=== PATIENT | female | born 1970 | race Caucasian/White ===

== ENCOUNTER → 2020-01-21 | Outpatient (CLI) | payer OTHER, SELFPAY ==
[2020-01-21 14:32] VITALS: BMI 34.8
--- NOTE | 2020-01-21 15:15 | EMB_PTH ---
PATIENT: BALBINA SCHULER [facility] U#:[id number] AGE/SX: 49/F ROOM: RE01/21/[address]: GEOVANY Strickland : 1970 BED: DIS: 01/21/2020 SPEC #: [id number] RECD: 01/21/20 15:36 STATUS: JERSON SERGIO #: [id number] BERTIN: 01/21/20 15:[address]: Kathie Nugent NP DEPT: SURGICAL PATHOLOGY RECD BY: Jerman Mueller Tissues: Endometrium, NOS Procedures: Surgery Specimen Level IV HEADER OPERATION: Endometrial biopsy PRE-OP DIAGNOSIS: Abnormal uterine bleeding TISSUE SUBMITTED: Endometrial lining MICROSCOPIC DIAGNOSIS Endometrial biopsy: Disordered proliferative endometrium to simple endometrial hyperplasia without atypia. See comment. KARRI:lj 01/23/20 COMMENT Clinical correlation and appropriate follow up are necessary. Case has been reviewed in consultation with Dr. Christie who concurs with the above diagnosis. IDC:AM MICROSCOPIC DESCRIPTION Slides are reviewed. GROSS DESCRIPTION Received is one container labeled with the patient's name and not further designated. The specimen consists of an elongated fragment of pink-ferrer soft tissue measuring in aggregate 2.5 x 2 x 0.2 cm. The specimen is totally submitted in one cassette. / AM:lj 01/22/20 TC:5 CPT: 29984
[2020-01-24 13:04] LABS: HPV APTIMA, High Risk Negative (Negative)
== END | disposition home or self-care (01) ==
PROVIDERS: Visit Provider Nurse Practitioner Women's Health
DX: N85.8 Other specified noninflammatory disorders of uterus (principal)
CPT/HCPCS: 87624; 88175; 88305; G0145

== ENCOUNTER → 2020-01-29 14:29 | Outpatient (CLI) | payer SELFPAY, OTHER ==
[2020-01-21 14:32] VITALS: BMI 34.8
--- NOTE | 2020-01-29 14:30 | US_ITS ---
STUDY: ULTRASOUND TRANSVAGINAL CLINICAL: Female, 49 years old. Abnormal bleeding TECHNIQUE: Transabdominal and Transvaginal COMPARISON: None. FINDINGS: Normal uterine size measuring 11.1 cm in maximal craniocaudal dimension. There are no myometrial masses. Normal endometrial thickness measuring 11 mm. There are no endometrial masses, and there is no fluid in the endometrial cavity. Normal uterine cervix. Normal right ovary, measuring 3.5 x 1.8 x 1.6 cm. There are multiple follicles without a dominant cyst. Normal left ovary, measuring 6.5 x 4.2 x 3.9 cm. There are multiple follicles with 2 separate simple cysts, larger measures 4.4 cm, smaller 3.87 m. There is no free fluid in the pelvis. Bladder is sonographically normal US/Transvaginal Non- IMPRESSION: Sonographically normal uterus and right ovary Simple left ovarian cysts, 4-6 week follow-up ultrasound recommended to ensure resolution Electronically Signed: Dhrvu Salas MD at 16:43 EDT , Service support ,
--- NOTE | 2020-01-29 14:30 | US_ITS ---
STUDY: ULTRASOUND TRANSVAGINAL CLINICAL: Female, 49 years old. Abnormal bleeding TECHNIQUE: Transabdominal and Transvaginal COMPARISON: None. FINDINGS: Normal uterine size measuring 11.1 cm in maximal craniocaudal dimension. There are no myometrial masses. Normal endometrial thickness measuring 11 mm. There are no endometrial masses, and there is no fluid in the endometrial cavity. Normal uterine cervix. Normal right ovary, measuring 3.5 x 1.8 x 1.6 cm. There are multiple follicles without a dominant cyst. Normal left ovary, measuring 6.5 x 4.2 x 3.9 cm. There are multiple follicles with 2 separate simple cysts, larger measures 4.4 cm, smaller 3.87 m. There is no free fluid in the pelvis. Bladder is sonographically normal US/Pelvic (Non ) IMPRESSION: Sonographically normal uterus and right ovary Simple left ovarian cysts, 4-6 week follow-up ultrasound recommended to ensure resolution Electronically Signed: Dhruv Salas MD at 16:43 EDT , Service support ,
--- NOTE | 2020-01-29 14:30 | BI_ITS ---
MAMMOGRAPHY - BILATERAL SCREENING REASON FOR EXAM: Female, 49 years old. Routine annual screening examination. PERTINENT HISTORY: Non-contributory. TECHNIQUE: Digital bilateral breast clinton (3D mammographic acquisition) in the CC and MLO projections. 2-D mediolateral oblique (MLO) and craniocaudad (CC) views of both breasts were obtained. CAD: Full Field Digital Mammography with Computer Added Detection was performed. COMPARISON: None. Baseline examination. FINDINGS: Breast Composition: There are scattered areas of fibroglandular density. There are no dominant masses or suspicious calcifications. No other significant abnormalities are identified. BI/SCREEN MAMM (CAD) W/[place] BILAT IMPRESSION: Negative screening mammogram. Yearly followup mammogram recommended. (A) ASSESSMENT CATEGORY: BIRADS Category 1: Negative. A letter regarding these results will be sent to the patient by the facility within 30 days. Approximately 10% of breast cancers are not detected by mammography. A normal mammogram should not delay biopsy of a clinically suspicious abnormality. [id number] Electronically Signed: Willie Anderson, at 15:20 EDT , Service support ,
== END ==
PROVIDERS: Referring Provider Nurse Practitioner Women's Health; Visit Provider Nurse Practitioner Women's Health
DX: Z12.31 Encounter for screening mammogram for malignant neoplasm of breast (principal); N92.1 Excessive and frequent menstruation with irregular cycle
CPT/HCPCS: 76830; 76856; 77063; 77067

== ENCOUNTER → 2020-02-03 11:09 | Outpatient (CLI) | payer OTHER, SELFPAY ==
[2020-02-03 10:17] VITALS: BMI 34.0
[2020-02-03 11:34] LABS: Absolute Lymphocyte Count 1.39 X10^3/uL (0.83-4.51); Absolute Neutrophil Count 4.9 X10^3/uL (2.0-7.7); Basophil# 0.03 X10^3/uL; Basophil% 0.4 % (0-1); Eosinophil# 0.06 X10^3/uL; Eosinophils% 0.9 % (0-5); Hematocrit 38.1 % (37-47); Hemoglobin 12.3 g/dL (12.0-15.0); Lymphocyte # 1.39 X10^3/ul (4.0); Lymphocyte % 20.1 % (19-41); Mean Corp Hgb Conc 32.3 g/dL (32-36); Mean Corpuscular Hgb 29.6 pg (27.0-32.0); Mean Corpuscular Volume 91.6 fL (81-99); Mean Platelet Vol. 11.3 fl (6.2-12.0); Monocyte# 0.51 X10^3/uL; Monocyte% 7.4 % (0-10); NRBC Flagged by Analyzer 0 % (0-5); Neutrophil # 4.89 X10^3/uL (2.7-7.7); Neutrophil % 70.9 % (47-70); Platelet Count 281 K/mm3 (150-450); RBC Distribution Width CV 12.3 % (11.6-14.6); RBC Distribution Width SD 40.9 fl (35.1-43.9); Red Blood Count 4.16 M/mm3 (4.2-5.4); White Blood Count 6.9 K/mm3 (4.4-11.0)
[2020-02-03 11:55] LABS: Thyroid Stim Hormone (TSH) 0.94 uIU/mL (0.358-3.74)
== END ==
PROVIDERS: Referring Provider Obstetrics & Gynecology; Visit Provider Obstetrics & Gynecology
DX: N92.1 Excessive and frequent menstruation with irregular cycle (principal)
CPT/HCPCS: 36415; 84443; 85025

== ENCOUNTER 2020-02-18 09:52 | Day surgery (SDC) | payer SELFPAY ==
[2020-02-03 10:17] VITALS: BMI 34.0
--- NOTE | 2020-02-17 17:11 | HP.PCM_ITS ---
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 Zita Lanza MD) Abnormal uterine bleeding (Acute) Surgical History (Updated 02/03/20 @ 11:[address] Zita Lanza MD) Hernia (Acute) Previous section (Acute) Social History (Updated 02/03/20 @ 11:[address] 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 she has an enlarged uterus and hyperplasia. she denies any pelvic floor disorders or urinary issues. she had already been seen by the INTERIOR PANELER and is wanting to proceed with a hysterectomy. Female Reproductive History Cycle Length: 21-35 Bleeding Duration: 10 Questions: Metorrhagia: Yes, Sexually active: Yes, Dyspareunia: No, PCB: No Pregancy History 6 Elective abortions Hx Para 6 Spontaneous abortions Hx # Term Pregnancies 6 Ectopic pregnancies Hx # Pregnancies Multiple births # of living children 6 Past Pregnancies Del. Date Name GA/Weeks Outcome Route Bth Weight Gen Labor Lgth Anesthesia Del Locatn Provider FOB Unknown Sophie Ramos 1992 Unknown Mirza 1995 Unknown Yaneth 1997 Unknown Valdo 2000 Unknown Denys 2004 Unknown Luzmaria 2006 ROS Const Constitutional: Denies fatigue, fever(s), headache(s), increased appetite, poor appetite, weight gain or weight loss Cardio Card: Denies chest pain Resp Resp: Denies cough or dyspnea GI GI: Reports as per HPI; denies abdominal pain, constipation, nausea or vomiting : Reports as per HPI; denies difficulty urinating, painful urination, nipple discharge, urinary frequency, urinary incontinence, urinary hesitancy, urinary urgency, vaginal discharge, vaginal dryness, vaginal odor or vaginal itching Skin Skin/Breast: Denies change in hair, breast lump, breast pain, breast skin changes or nipple discharge Exam Const General: cooperative, healthy appearing, comfortable, no acute distress, well developed Orientation: alert HENMT Head: normal to inspection, normocephalic Neck Neck: normal visual inspection, trachea midline Thyroid: thyroid normal Resp Effort & Inspection: normal respiratory effort GI Inspection: normal to inspection, non-distended Palpation: soft, no hepatosplenomegaly General: bladder normal to palpation External Female Exam: normal external appearance, normal appearance of the urethra Urethra: normal appearance of the urethra, normal palpation, no discharge Speculum Exam - Vagina: normal appearance of the vagina, normal vaginal discharge Speculum Exam - Cervix: normal appearance of the cervix, nontender Bimanual Exam- Vagina & Uterus: normal bimanual exam, uterine size normal, bladder normal to palpation, uterine shape normal, No cervical tenderness, uterine mobility normal, uterine consistency normal, normal cervical palpation, uterus non-tender Bimanual Exam- Adnexa, other: normal adnexae, adnexae mobile, no adnexal masses, pelvic support normal Pelvic Support: normal Skin General: no rashes or lesions noted Assessment & Plan Problems 1. Hernia K46.9 umbilical with mesh. needs LUQ entry if Lavh 2. Previous section Z98.891 3. Abnormal uterine bleeding N93.9 11 CM uterus. simple hyperplasia without atypia. cbc tsh ordered. plan TVH BS possible LAVH LSO. Plan After discussing the patient's diagnosis and treatment plan options, patient wishes to proceed with surgical management. I have discussed with the patient the risks, benefits, and alternatives of the procedure which include but are not limited to risks of anesthesia, bleeding, infection, possible damage to bowel, bladder, or surrounding vasculature which could lead to additional surgery to evaluate any complications. Patient agrees to procedure and wishes to proceed. ACOG/uptodate references given for additional information regarding procedure. Orders Orders: Thyroid Stim Hormone (TSH) Today N92.1 CBC W/Diff, Automated Today N92.1 Coding Level of Care Code Off vis,est,level 4 Diagnoses Hernia K46.9 Previous section Z98.891 Abnormal uterine bleeding N93.9 UPDATE- I have seen the patient and performed any clinically relevant updates to the history and physical exam. Zita Lanza MD
[2020-02-18] VITALS (13 sets, daily range): BP systolic 139–168; BP diastolic 79–95; PULSE 44–82; RESP 14–18; TEMP 36–37.3; O2SAT 87–100; BMI 35.2
--- NOTE | 2020-02-18 | HYST_PTH ---
PATIENT: BALBINA SCHULER [place] [facility] [place] U#:[id number] AGE/SX: 49/F ROOM: RE02/18/[address]: Dr. Zita Lanza MD : 1970 BED: DIS: 02/19/2020 SPEC #: [id number] RECD: 02/18/20 15:14 STATUS: JERSON SERGIO #: [id number] BERTIN: 02/18/20 00:[address]: Zita Lanza DEPT: SURGICAL PATHOLOGY RECD BY: Justyn Vides ENTERED: 02/19/20 09:43 SP TYPE: HYSTERECT OTHR DR: No Primary Care Phys Tissues: Uterus, NOS Procedures: Surgery Specimen Level V HEADER OPERATION: ERAS, vaginal hysterectomy, bilateral salpingectomy, left salpingo-oophorectomy PRE-OP DIAGNOSIS: Enlarged uterus, left ovarian cyst, menorrhagia TISSUE SUBMITTED: Uterus, fallopian tubes, left ovary MICROSCOPIC DIAGNOSIS Uterus, fallopian tubes and left ovary, vaginal hysterectomy, bilateral salpingectomy and left oophorectomy: Cervix - chronic inflammation. Endometrium - disordered proliferative endometrium. Myometrium - intramural leiomyomas (0.5 to 2 cm in greatest dimension). Bilateral fallopian tubes - no pathologic diagnosis. Left ovary - hemorrhagic follicular and corpus luteal cysts. SJ:lj 02/20/20 COMMENT Please make reference to previous specimen ([id number]) endometrial biopsy with diagnosis of disordered proliferative endometrium to simple endometrial hyperplasia without atypia. MICROSCOPIC DESCRIPTION Slides are reviewed. GROSS DESCRIPTION Received in fixative is one container labeled with the patient's name and designated uterus. The specimen consists of a uterus with attached cervix, two detached fallopian tubes and one detached ovary. The uterus with cervix measures 12 x 7.5 x 6.5 cm and weighs 206 gm. The ectocervix is grossly unremarkable. The cervical os is oval in contour. The endocervical canal measures 4.5 cm in length and is grossly unremarkable. The triangular endometrial cavity measures 4.5 x 4.5 cm. The velvety, ferrer endometrium measures up to 0.5 cm in thickness. The myometrium measures 2.5 cm in average thickness and contains multiple spherical, rubbery nodule ranging in size from 0.5 to 2 cm in greatest dimension. The cut surface of the nodules are grossly consistent with leiomyoma. The two fallopian tubes are similar in appearance and both contain grossly unremarkable fimbriated ends and have average lengths of 4 cm and average diameters of 0.7 cm. The smooth, glistening, light ferrer cystic ovary measures 5.2 x 2.5 x 1.7 cm and [id number] gm. Serial sections reveal two hemorrhagic cysts ranging in size from 3 to 2.8 cm in greatest dimension. [place]el [place] Brushing Machine Operator sections are submitted in 12 cassettes as follows: 1 - anterior cervix, 2 - posterior cervix, 3 & 4 - anterior uterine wall, 5 & 6 - posterior uterine wall, 7 - myometrial nodules, 8 - one fallopian tube, 9 - the other fallopian tube, 10-12 - ovary. / AM:lj 02/19/20 TC:1 CPT: 96713
[2020-02-18] MEDS: Lactated Ringers 1,000 ML 40 ML IV (07:00)
[2020-02-18 10:47] LABS: Magnesium 2.1 mg/dL (1.6-2.6)
[2020-02-18 10:49] LABS: Internal QC Validated? YES +Cl - CLEAR BKGD; Pregnancy, Urine Negative Negative
[2020-02-18 10:49] LABS: Hematocrit 39.4 % (37-47); Hemoglobin 12.8 g/dL (12.0-15.0); Mean Corp Hgb Conc 32.5 g/dL (32-36); Mean Corpuscular Hgb 29.9 pg (27.0-32.0); Mean Corpuscular Volume 92.1 fL (81-99); Mean Platelet Vol. 11.4 fl (6.2-12.0); Platelet Count 287 K/mm3 (150-450); RBC Distribution Width CV 12.3 % (11.6-14.6); Red Blood Count 4.28 M/mm3 (4.2-5.4); White Blood Count 9.4 K/mm3 (4.4-11.0)
[2020-02-18] MEDS: Phenazopyridine 95 MG Tablet 190 MG PO (11:09)
[2020-02-18] MEDS: Gabapentin 600 MG Tablet PO (11:10)
[2020-02-18] MEDS: Acetaminophen 500 MG Tablet 1000 MG PO ×3 (11:10→23:51)
[2020-02-18] MEDS: Celecoxib 200 MG Capsule 400 MG PO (11:10)
[2020-02-18] MEDS: Enoxaparin 40 MG/0.4 ML Syringe SC (11:11)
[2020-02-18] MEDS: Scopolamine 1mg/72hr Patch 1 PATCH TRANSDERM. (11:11)
[2020-02-18] MEDS: dexAMETHasone 10 MG/ML Vial 8 MG IV (11:12)
[2020-02-18 11:45] LABS: Bedside Glucose 70 mg/dL (70-110)
--- NOTE | 2020-02-18 12:06 | PCM.OPRPT ---
Problem List (1) Enlarged uterus Status: Acute Comment: US- 11 cm uterus (2) Left ovarian cyst Status: Acute Comment: 3 and 4 cm simple (3) Menorrhagia with irregular cycle Status: Acute Comment: EMB nl Report of Operation Date of Procedure: 02/18/20 Pre-Operative Diagnosis: AUB Post-Operative Diagnosis: same plus right ovarian cysts Surgery/Procedure Performed:: tvh bs right oophorectomy Description of Surgical Findings:: right cystic ovary enlarged fibroid uterus head librarian: Jojo Valderrama Type of Anesthesia:: General Special Medications: none Specimen's removed: uterus tubes Drains: valdez Estimated Blood Loss (mL): 200 Fluids Replaced: crystalloid Description of Procedure: Patient was taken to the operating room and was placed under general anesthesia was prepped and draped in normal sterile fashion in the dorsal lithotomy position. Preoperative antibiotics and SCDs and Valdez catheter was placed inside the bladder. Weighted speculum was placed in the vagina and the anterior and posterior lip of the cervix was grasped with 2 Daniel clamps and circumferentially injected with dilute vasopressin. A circumferential incision was made with a scalpel and the posterior cul-de-sac was entered into sharply and a longneck speculum was placed. The anterior cul-de-sac was also dissected down and entered into sharply and the uterosacral ligaments were clamped cut and suture ligated bilaterally followed by the cardinal ligaments which were Clamped cut and suture ligated bilaterally with 0 Monocryl. The uterus serially descended and progressive bites were taken bilaterally up to the level of the utero-ovarian ligament bilaterally which was clamped transected and double ligated with 0 Monocryl suture and 0 Vicryl free tie. Bilateral fallopian tubes and ovaries were well visualized and noted be within normal limits and the bilateral fallopian tubes were transected across the base with a Bibi clamp and removed and sutured with 0 Vicryl suture. Along with excess. The left ovary was polycystic but did not have the appearance that was seen on ultrasound. Due to some bleeding in the right ovary with dissection of the cyst the right ovary was removed without complication by transecting at the base and suturing with 0 Vicryl. Some peritoneal oozing was noted on the right pelvic sidewall which was suture-ligated with 2-0 Vicryl. Excellent hemostasis was noted. Posterior peritoneum was reapproximated with 2-0 Vicryl and a modified Fagan stitch was placed through the posterior vaginal cuff and bilateral uterosacral ligaments across the posterior cul-de-sac skimming along to provide apical support to the vagina. The vagina was closed with [id number] 0 Vicryl pop offs including the posterior and anterior peritoneum in the reapproximation. Excellent hemostasis was noted. All instruments removed from the vagina clear urine was noted at the end of the procedure and patient was awoken and taken recovery in stable condition. Grafts/Implants Used: none - Complications none - Admit VTE Documentation VTE Present on Admission: No VTE Mechan Device Prophylaxis: SCD's VTE Pharm Prophylaxis ordered?: Yes Multi Select Codes - Urinary/Genital Urinary/Genital CPT Codes: 46049 TVH+BS/O >250gr uterus
--- NOTE | 2020-02-18 12:08 | PCM.DC.VHY ---
Discharge Diet: No Restrictions Discharge Activity: Return to Normal Activity, May Not Drive, May Shower May resume sexual activity in: 6-8 weeks Call your doctor if your incision/area has: Continuous Slow Oozing, Sudden Increased Bleeding, Increased Pain/ Swelling, Increased Redness, Foul Smelling Discharge Call your doctor if you observe: Fever of 101 or Higher, Inability to urinate, Inability to have a bowel movement, Using more than one pad per hour Allergies/Adverse Reactions: Allergies No Known Allergies Allergy (Verified 02/11/20 14:03) Medications to take at Discharge Naproxen [Naprosyn] 250 - 500 mg PO Q8H PRN PRN #30 tab 02/18/20 Oxycodone HCl/Acetaminophen [Percocet 5-325] 1 - 2 tablet PO Q6H PRN PRN 7 Days #15 tablet 02/18/20 The following prescriptions were given: Naproxen [Naprosyn] 250 - 500 mg PO Q8H PRN PRN #30 tab PRN Reason: MILD PAIN Transmission Status: Pending to [facility] Oxycodone HCl/Acetaminophen [Percocet 5-325] 1 - 2 tablet PO Q6H PRN PRN 7 Days #15 tablet PRN Reason: Pain Transmission Status: Sent to [facility] Primary Care Physician: Care Physician,No Primary [Primary Care Provider] - Test Results: Test results from this visit will be discussed in further detail at your follow-up appointment, if applicable. Please Follow Up With: Zita Lanza MD - [phone]
[2020-02-18] MEDS: Cefazolin 2 GM in 0.9% Normal Saline 100 ML IV (12:47)
[2020-02-18] MEDS: Vasopressin 20 UNITS/ML Vial (13:15)
[2020-02-18] MEDS: Lactated Ringers 1,000 ML 70 ML IV ×2 (14:15→17:25)
[2020-02-18] MEDS: Ondansetron 4 MG/2 ML Vial IV (15:05)
[2020-02-18] MEDS: Ketorolac 30 MG/ML Syringe IV ×2 (17:26→23:51)
[2020-02-18 19:04] LABS: Absolute Lymphocyte Count 0.77 X10^3/uL (0.83-4.51); Absolute Neutrophil Count 16.7 X10^3/uL (2.0-7.7); Basophil# 0.03 X10^3/uL; Basophil% 0.2 % (0-1); Hematocrit 38.9 % (37-47); Hemoglobin 12.5 g/dL (12.0-15.0); Lymphocyte # 0.77 X10^3/ul (4.0); Lymphocyte % 4.3 % (19-41); Mean Corp Hgb Conc 32.1 g/dL (32-36); Mean Corpuscular Hgb 29.6 pg (27.0-32.0); Mean Platelet Vol. 11.3 fl (6.2-12.0); Monocyte# 0.25 X10^3/uL; Monocyte% 1.4 % (0-10); NRBC Flagged by Analyzer 0 % (0-5); Neutrophil # 16.65 X10^3/uL (2.7-7.7); Neutrophil % 93.7 % (47-70); Platelet Count 266 K/mm3 (150-450); RBC Distribution Width CV 12.3 % (11.6-14.6); RBC Distribution Width SD 41.4 fl (35.1-43.9); Red Blood Count 4.23 M/mm3 (4.2-5.4); White Blood Count 17.8 K/mm3 (4.4-11.0)
[2020-02-18] MEDS: Docusate Sodium 100 MG Capsule PO (21:35)
[2020-02-19 01:05] VITALS: BP 127/58; PULSE 80; RESP 16; TEMP 36.6; O2SAT 93
[2020-02-19 05:13] VITALS: BP 128/61; PULSE 73; RESP 16; TEMP 36.7; O2SAT 96
[2020-02-19] MEDS: Acetaminophen 500 MG Tablet 1000 MG PO ×2 (05:20→12:29)
[2020-02-19] MEDS: Ketorolac 30 MG/ML Syringe IV ×2 (05:21→12:29)
[2020-02-19 06:03] LABS: Hematocrit 35.8 % (37-47); Hemoglobin 11.4 g/dL (12.0-15.0); Mean Corp Hgb Conc 31.8 g/dL (32-36); Mean Corpuscular Hgb 29.3 pg (27.0-32.0); Mean Platelet Vol. 11.4 fl (6.2-12.0); Platelet Count 277 K/mm3 (150-450); RBC Distribution Width CV 12.3 % (11.6-14.6); RBC Distribution Width SD 41.3 fl (35.1-43.9); Red Blood Count 3.89 M/mm3 (4.2-5.4); White Blood Count 14.5 K/mm3 (4.4-11.0)
[2020-02-19 07:04] VITALS: O2SAT 94
[2020-02-19 07:56] VITALS: BP 152/85; PULSE 70; RESP 16; TEMP 37; O2SAT 94
--- NOTE | 2020-02-19 07:58 | PN.OBGYN_ITS ---
Subjective: Doing well, no complaints.Pain controlled. Denies CP, SOB, N,V. Ambulating well, tolerating po. Urinary cath remain. - Physical Exam Vitals/I&O's: Vital Signs Temp Pulse Resp BP Pulse Ox 98.6 F 70 16 152/85 H 94 02/19/20 07:56 02/19/20 07:56 02/19/20 07:56 02/19/20 07:56 02/19/20 07:56 Oxygen Flow Rate (L/min) 6 Oxygen Delivery Method Room Air Weight: 218 lb 4.122 oz Body Mass Index (BMI) 35.2 Intake and Output for Last 24 Hours 02/17/20 02/18/20 02/19/20 23:59 23:59 23:59 Intake Total 1636.5 / 2236.5 825 / 825 Output Total 325 / 575 1100 / 1100 Balance 1311.5 / 1661.5 -275 / -275 General: Alert, Oriented x3 Abdomen: Soft, Non-Distended Laboratory Results 02/18/20 10:20: Magnesium 2.1 02/18/20 10:20: WBC 9.4, RBC 4.28, Hgb 12.8, Hct 39.4, MCV 92.1, MCH 29.9, MCHC 32.5, RDW Std Deviation 41.0, RDW Coeff of Christophe 12.3, Plt Count 287, MPV 11.4 02/18/20 10:20: Blood Type B POSITIVE, Antibody Screen NEGATIVE 02/18/20 10:42: Urine Test Negative 02/18/20 11:04: POC Glucose 70 02/18/20 18:35: WBC 17.8 H, RBC 4.23, Hgb 12.5, Hct 38.9, MCV 92.0, MCH 29.6, MCHC 32.1, RDW Std Deviation 41.4, RDW Coeff of Christophe 12.3, Plt Count 266, MPV 11.3, Immature Gran % (Auto) 0.400, Neut % (Auto) 93.7 H, Lymph % (Auto) 4.3 L, [place] % (Auto) 1.4, Eos % (Auto) 0.0, Baso % (Auto) 0.2, Absolute Neuts (auto) 16.7 H, Absolute Lymphs (auto) 0.77 L, Nucleated RBC % 0 02/19/20 05:30: WBC 14.5 H, RBC 3.89 L, Hgb 11.4 L, Hct 35.8 L, MCV 92.0, MCH 29.3, MCHC 31.8 L, RDW Std Deviation 41.3, RDW Coeff of Christophe 12.3, Plt Count 277, MPV 11.4 Current Medications Acetaminophen (Tylenol) 1,000 mg PO Q6 [facility] Last Admin: 02/19/20 05:20 Dose: 1,000 mg Documented by: Docusate Sodium (Colace) 100 mg PO BID [facility] Last Admin: 02/18/20 21:35 Dose: 100 mg Documented by: Enoxaparin Sodium (Lovenox) 40 mg SC DAILY [facility] Lactated Ringer's () 1,000 mls @ 70 mls/hr IV .[id number] [facility] Stop: 02/19/20 15:01 Last Admin: 02/18/20 17:25 Dose: 70 mls/hr Documented by: Sodium Chloride () 250 mls @ 15 mls/hr IV .[id number] PRN PRN Reason: Saline Flush Sodium Chloride () 250 mls @ 15 mls/hr IV .[id number] PRN PRN Reason: Additional IVPB Infusion Ketorolac Tromethamine (Toradol (Bkc)) 30 mg IV Q6 [facility] Stop: 02/20/20 00:01 Last Admin: 02/19/20 05:21 Dose: 30 mg Documented by: Magnesium Oxide (Mag-Ox 400) 400 mg PO DAILY PRN PRN PRN Reason: Constipation Nutritional Formula (Lactose Free) (Ensure Enlive) 120 ml PO TIDCM [facility] Last Admin: 02/18/20 17:20 Dose: Not Given Documented by: Ondansetron HCl (Zofran Odt) 4 mg PO Q6H PRN PRN PRN Reason: NAUSEA Oxycodone HCl (Oxyir) 5 - 10 mg PO Q4H PRN PRN PRN Reason: Pain Score 4-10/10 Sodium Chloride () 10 - 40 ml IV UD PRN PRN Reason: SALINE FLUSH Medical Necessity - Tobacco Use Smoking Status: Never smoker Tobacco Use: Non-smoker Assessment/Plan All Active Problems (Last Updated 02/03/20 @ 11:[address] Zita Lanza MD) Left ovarian cyst (Acute) Enlarged uterus (Acute) Menorrhagia with irregular cycle (Acute) s/p TVH BS RO routine post op care Plans home today after cath removed and voiding qs
[2020-02-19] MEDS: Docusate Sodium 100 MG Capsule PO (10:21)
[2020-02-19] MEDS: Enoxaparin 40 MG/0.4 ML Syringe SC (10:21)
[2020-02-19 13:21] VITALS: BP 140/76; PULSE 73; RESP 16; TEMP 37.2; O2SAT 97
--- NOTE | 2020-02-19 14:09 | PHA.DC.MR ---
Pharmacy Service has performed discharge medication reconciliation for this patient. The patient's discharge medication list was reviewed for discrepancies and discrepancies were resolved. Home Medications Naproxen [Naprosyn] 250 - 500 mg PO Q8H PRN PRN #30 tab 02/18/20 Oxycodone HCl/Acetaminophen [Percocet 5-325] 1 - 2 tab PO Q6H PRN PRN 7 Days #15 tab 02/18/20
== END 2020-02-19 14:03 | disposition home or self-care (01) ==
LOC: SDC 09:53 → AC 09:59 → MS3 13:13
PROVIDERS: Anesthesiology; Referring Provider Obstetrics & Gynecology; Visit Provider Obstetrics & Gynecology
PROC: (CPT 58260; principal; 2020-02-18 11:45)
DX: D25.1 Intramural leiomyoma of uterus (principal); N85.2 Hypertrophy of uterus; N83.12 Corpus luteum cyst of left ovary; N83.02 Follicular cyst of left ovary; N92.0 Excessive and frequent menstruation with regular cycle; Z11.59 Encounter for screening for other viral diseases; Z98.891 History of uterine scar from previous surgery
CPT/HCPCS: 00944; 58262; 36415; 81025; 82962; 83735; 85025; 85027; 86850; 86900; 86901; 87635; 88307; 99251; G2023; J7120; G0463; J2405; U0003

== ENCOUNTER → 2020-03-12 10:59 | Outpatient (CLI) | payer OTHER, SELFPAY ==
[2020-03-03 14:22] VITALS: BMI 35.2
--- NOTE | 2020-03-12 11:00 | VDLE_ITS ---
Reason For Study: Pain RIGHT LEFT GSV is normal. CFV is compressible, spontaneous, phasic, CFV is compressible, spontaneous, phasic, competent, and demonstrates normal competent and demonstrates normal augmentation. augmentation. FV is compressible, spontaneous, phasic, FV is compressible, spontaneous, phasic, competent and demonstrates normal competent and demonstrates normal augmentation. augmentation. POP V is compressible, spontaneous, phasic, POP V is compressible, spontaneous, phasic, competent and demonstrates normal competent and demonstrates normal augmentation. augmentation. T/P Trunk is compressible. T/P Trunk is compressible. PTV is compressible. PTV is compressible. LT PerV is compressible. RT PerV is compressible. FV mid- distalvisualized with color only, pt Procedure unable to tolerate compression. Exam performed in department. Acute superficial vein thrombosis is noted in A preliminary report was called and/or faxed the left GSV from prox-mid thigh. to Raffi. Thrombus filled varicose veins noted throughout the knee- mid thigh region. Interpretation Summary No evidence for acute deep venous thrombosis bilateral lower extremities. Patent and compressible right great saphenous vein Superficial thrombophlebitis left great saphenous vein in the proximal to mid thigh. Additional thrombophlebitis within varicose veins throughout the felice-knee and mid thigh region Ordering Physician: Kathie Nugent Performed By: Nidia Nj RVT and Student
== END ==
PROVIDERS: Referring Provider Nurse Practitioner Women's Health; Visit Provider Nurse Practitioner Women's Health
DX: M79.606 Pain in leg, unspecified (principal)
CPT/HCPCS: 93970

== ENCOUNTER → 2022-12-21 | Outpatient (CLI) | payer SELFPAY, OTHER ==
--- NOTE | 2022-12-21 08:35 | BI_ITS ---
MAMMOGRAPHY - BILATERAL SCREENING REASON FOR EXAM: Female, 52 years old. Routine annual screening examination. PERTINENT HISTORY: Non-contributory. TECHNIQUE: Digital bilateral breast clinton (3D mammographic acquisition) in the CC and MLO projections. 2-D mediolateral oblique (MLO) and craniocaudad (CC) views of both breasts were obtained. CAD: Full Field Digital Mammography with Computer Added Detection was performed. COMPARISON: Comparison is made with prior study dated January 29, 2020. FINDINGS: Breast Composition: There are scattered areas of fibroglandular density. There are no dominant masses or suspicious calcifications. No other significant abnormalities are identified. There has been no significant change since the prior study. BI/SCRN MAMM (CAD)W/[place] BILAT IMPRESSION: Stable bilateral screening mammogram. Yearly follow-up mammogram recommended. (A) ASSESSMENT CATEGORY: BIRADS Category 1: Negative. A letter regarding these results will be sent to the patient by the facility within 30 days. Approximately 10% of breast cancers are not detected by mammography. A normal mammogram should not delay biopsy of a clinically suspicious abnormality. [id number] Electronically Signed: Willie Anderson MD at 10:17 EDT ,
== END | disposition home or self-care (01) ==
PROVIDERS: Referring Provider Nurse Practitioner Women's Health; Visit Provider Nurse Practitioner Women's Health
DX: Z12.31 Encounter for screening mammogram for malignant neoplasm of breast (principal)
CPT/HCPCS: 77063; 77067

== ENCOUNTER → 2025-06-30 | Outpatient (CLI) | payer SELFPAY, OTHER ==
--- NOTE | 2025-06-30 12:15 | BI_ITS ---
EXAM: SCRN MAMM (CAD)W/CLINT[place] BILAT DATE: 06/30/2025 CLINICAL HISTORY: F, Age 55 y/o , SCREENING FOR BREAST CANCER TECHNIQUE: Procedure Code: [id number] Modality: MG Procedure: SCRN MAMM (CAD)W/[place] BILAT COMPARISON: Prior exam(s) were compared FINDINGS: TISSUE DENSITY: There are scattered areas of fibroglandular density. Bilateral Breast Mammographic Findings: No significant masses, calcifications or other abnormalities are identified. BI/SCRN MAMM (CAD)W/[place] BILAT IMPRESSION: No mammographic evidence of malignancy. OVERALL FINAL ASSESSMENT BI-RADS 1: NEGATIVE.. RECOMMENDATION: Routine annual follow-up in 1 Year Additional Recommendation none A letter with findings and recommendations will be mailed to the patient. Reading Location: [id number]
== END | disposition home or self-care (01) ==
LOC: OPBI 11:57
PROVIDERS: Referring Provider Nurse Practitioner Women's Health; Visit Provider Nurse Practitioner Women's Health
DX: Z12.31 Encounter for screening mammogram for malignant neoplasm of breast (principal)
CPT/HCPCS: 77063; 77067